=== PATIENT | female | born 1960 | race Hispanic/Latino ===

== ENCOUNTER 2018-01-17 17:27 | Emergency (ER) | payer MEDICARE ==
[2018-01-17 17:30] VITALS: BMI 59.9
--- NOTE | 2018-01-17 18:41 | ED PDOC ---
Arrival/HPI - General Chief Complaint: Back Pain Time Seen by Provider: 01/17/18 17:35 Historian: Patient - History of Present Illness Narrative History of Present Illness (Text): 01/17/18 18:38 57yo female with PMHx of Diabetes, hypertension, GERD, Asthma who present with complaint of left sided mid back pain x 6weeks. Patient states pain became increasingly worse. Notes that pain is constant but worse with movement. She admits to urinary frequency. She states she is not on any medication. States she saw her PMD last week for the pain and urine culture was ordered and pending. She denies fever, chills, abdominal pain, hematuria, nausea, vomiting, any other complaint. Past Medical History - Provider Review Nursing Documentation Reviewed: Yes - Infectious Disease Hx of Infectious Diseases: None - Tetanus Immunization Tetanus Immunization: Unknown - Reproductive Menopause: Yes - Cardiac Hx Hypertension: Yes - Pulmonary Hx Asthma: Yes Hx Chronic Obstructive Pulmonary Disease (COPD): Yes - Neurological Hx Neurological Disorder: No - HEENT Hx HEENT Disorder: No - Renal Hx Renal Disorder: No - Endocrine/Metabolic Hx Diabetes Mellitus Type 2: Yes - Hematological/Oncological Hx Cancer: Yes (uterine) - Integumentary Hx Dermatological Disorder: No - Musculoskeletal/Rheumatological Hx Herniated Disk: Yes - Gastrointestinal Hx Gastroesophageal Reflux: Yes - Genitourinary/Gynecological Hx Genitourinary Disorders: No - Psychiatric Hx Psychophysiologic Disorder: No Hx Depression: No Hx Emotional Abuse: No Hx Physical Abuse: No Hx Substance Use: No - Surgical History Hx Hysterectomy: Yes Hx Tonsillectomy: Yes - Anesthesia Hx Anesthesia: Yes Hx Anesthesia Reactions: No Hx Malignant Hyperthermia: No - Suicidal Assessment Feels Threatened In Home Enviroment: No Family/Social History - Physician Review Nursing Documentation Reviewed: Yes Family/Social History: Unknown Family HX Smoking Status: Never Smoked Hx Alcohol Use: No Hx Substance Use: No Hx Substance Use Treatment: No Allergies/Home Meds Allergies/Adverse Reactions: Allergies enalapril Allergy (Verified 01/17/18 18:05) ANAPHYLAXIS erythromycin lactobionate [From Erythrocin] Allergy (Verified 01/17/18 18:05) ANAPHYLAXIS gluten Allergy (Verified 01/17/18 18:05) VOMITING ibuprofen Allergy (Verified 01/17/18 18:05) ANAPHYLAXIS metoprolol Adverse Reaction (Verified 01/17/18 18:05) RASH Home Medications: Home Meds Medication Instructions Recorded Confirmed Albuterol HFA [Ventolin HFA 90 2 puff IH [id number] 09/05/13 01/17/18 mcg/actuation (8 g)] Dexlansoprazole [Dexilant] 60 mg PO DAILY 09/05/13 01/17/18 Insulin NPH Human Isophane 65 unit SC DAILY 09/05/13 01/17/18 [Humulin N] Ipratropium [Atrovent HFA] 1 puff IH TID 09/05/13 01/17/18 Losartan [Cozaar] 25 mg PO DAILY 09/05/13 01/17/18 Montelukast [Singulair] 10 mg PO DAILY 09/05/13 01/17/18 Beclomethasone Dipropionate [Qvar] 2 puff INH BID 01/29/16 01/17/18 Insulin Regular [HumuLIN R] 30 units SC TID 01/29/16 01/17/18 Levomefolate/B6/B12/Algal Oil 1 cap PO DAILY 01/29/16 01/17/18 [Metanx Capsule] Quinapril HCl 40 mg PO DAILY 01/29/16 01/29/16 metFORMIN [glucOPHAGE] 500 mg PO BID 01/29/16 01/17/18 Review of Systems - Physician Review All systems were reviewed & negative as marked: Yes - Review of Systems Constitutional: Normal Eyes: Normal ENT: Normal Respiratory: Normal Cardiovascular: Normal Gastrointestinal: Normal Genitourinary Female: Normal Musculoskeletal: Back Pain Skin: Normal Neurological: Normal Endocrine: Normal Hemo/Lymphatic: Normal Psychiatric: Normal Physical Exam Vital Signs Reviewed: Yes Vital Signs Temp Pulse Resp BP Pulse Ox 01/17/18 20:19 98.1 F 85 17 130/72 98 01/17/18 19:39 89 17 132/63 100 01/17/18 17:29 98.3 F 90 18 127/82 96 Temperature: Afebrile Blood Pressure: Normal Pulse: Regular Respiratory Rate: Normal Appearance: Positive for: Well-Appearing, Non-Toxic, Comfortable, Other ( Morbidly obese) Pain Distress: None Mental Status: Positive for: Alert and Oriented X 3 - Systems Exam Head: Present: Atraumatic, Normocephalic Pupils: Present: PERRL Extroacular Muscles: Present: EOMI Conjunctiva: Present: Normal Mouth: Present: Moist Mucous Membranes Neck: Present: Normal Range of Motion Respiratory/Chest: Present: Clear to Auscultation, Good Air Exchange. No: Respiratory Distress, Accessory Muscle Use Cardiovascular: Present: Regular Rate and Rhythm, Normal S1, S2. No: Murmurs Abdomen: No: Tenderness, Distention, Peritoneal Signs Back: Present: CVA Tenderness (LEft side), Paraspinal Tenderness (Left parathoracic tenderness). No: Midline Tenderness, Pain with Leg Raise Upper Extremity: Present: Normal Inspection. No: Cyanosis, Edema Lower Extremity: Present: Normal Inspection. No: Edema Neurological: Present: GCS=15, CN II-XII Intact, Speech Normal Skin: Present: Warm, Dry, Normal Color. No: Rashes Psychiatric: Present: Alert, Oriented x 3, Normal Insight, Normal Concentration Medical Decision Making ED Course and Treatment: 01/17/18 20:03 PT in ED for stated history. She declined pain medication in ED. She have UTI and was DC home with Keflex. Abdomen/Pelvic CT IMPRESSION: 1. There is hypodense fatty infiltration of the liver. 2. Diverticulosis. 3. There is a hypodense probable right renal cyst measuring 3.5 x 2.8 cm. 4. There is an enlarged right external iliac chain lymph node measuring 2.4 cm in length. There stranding of adjacent fat, which may be inflammatory. A few enlarged left external iliac chain lymph nodes are also visualized, nonspecific as to etiology. Correlation with prior studies is recommended. 5. Incidental/non-acute findings are described above. Thoracic spine xray DJD. No acute finding Result was DW the pt and she was referred to her PMD. - Lab Interpretations Lab Results: Lab Results 01/17/18 19:34: POC Glucose (mg/dL) 62 L 01/17/18 19:18: Urine Color Yellow, Urine Appearance Clear, Urine pH 6.0, Ur Specific Miller 1.025, Urine Protein Trace H, Urine Glucose (UA) Negative, Urine Ketones Negative, Urine Blood Negative, Urine Nitrate Positive H, Urine Bilirubin Negative, Urine Urobilinogen 0.2, Ur Leukocyte Esterase Small H, Urine RBC 1 - 3, Urine WBC 10 - 15, Ur Epithelial Cells 4 - 5, Amorphous Sediment Few, Urine Bacteria Large, Urine Other Uyeast - RAD Interpretation Radiology Orders: 01/17/18 18:10 ABD & PELVIS W/O PO OR IV CONT [CT] Stat DORSAL (THORACIC) SPINE [RAD] Stat - Medication Orders Current Medication Orders: Discontinued Medications Nitrofurantoin Macrocrystals (Macrobid) 100 mg PO Q12 STA PRN Reason: Protocol Stop: 01/17/18 19:55 Last Admin: 01/17/18 20:15 Dose: 100 mg Disposition/Present on Arrival - Present on Arrival Any Indicators Present on Arrival: No History of DVT/PE: No History of Uncontrolled Diabetes: No Urinary Catheter: No History of Decub. Ulcer: No History Surgical Site Infection Following: None - Disposition Have Diagnosis and Disposition been Completed?: Yes Diagnosis: UTI (urinary tract infection), Thoracic back pain, Obesity Disposition: HOME/ ROUTINE Disposition Time: 20:00 Patient Plan: Discharge Condition: STABLE Discharge Instructions (ExitCare): Urinary Tract Infections in Adults, Upper Back Pain Additional Instructions: Follow up with your doctor Return to ED for any new or worsening symptoms Prescriptions: Cephalexin [Keflex] 500 mg PO QID #28 capsule Referrals: Hollie Reza DO [Staff Provider] - Follow up with primary Forms: [employer] (Albanian)
--- NOTE | 2018-01-17 19:35 | CT ---
EXAM: CT Abdomen and Pelvis Without Intravenous Contrast EXAM DATE/TIME: 01/17/2018 6:10 PM CLINICAL HISTORY: The patient age is 57 years old and is female; Pain; Other: Left mid back pain; Prior surgery; Surgery type: Hysterectomy Facility exam id and description: Ct [id number] abd pelvis w/o po or iv cont TECHNIQUE: Axial computed tomography images of the abdomen and pelvis without intravenous contrast. All CT scans at this facility use one or more dose reduction techniques, viz.: automated exposure control; ma/kV adjustment per patient size (including targeted exams where dose is matched to indication; i.e. head); or iterative reconstruction technique. Coronal and sagittal reformatted images were created and reviewed. COMPARISON: No relevant prior studies available. FINDINGS: Lung bases: Atelectatic changes are visualized within the lingula. ABDOMEN: Liver: There is hypodense fatty infiltration of the liver. Gallbladder and bile ducts: No calcified stones. No ductal dilation. Pancreas: There is mild atrophy of the pancreas. Spleen: No splenomegaly. Adrenals: No mass. Kidneys and ureters: There is a hypodense probable right renal cyst measuring 3.5 x 2.8 cm. No obstructing stones. No hydronephrosis. Stomach and bowel: Colonic diverticula are identified, without acute inflammatory stranding of the adjacent mesentery. Appendix: No findings to suggest acute appendicitis. PELVIS: Bladder: No stones. The bladder is incompletely filled, which limits the evaluation. Reproductive: The uterus is absent. There is a small amount of gas within the vaginal canal. ABDOMEN and PELVIS: Intraperitoneal space: No free air. Bones/joints: Hypertrophic degenerative changes are noted within the spine. Vasculature: There is minimal atherosclerotic calcification of the abdominal aorta. No abdominal aortic aneurysm. Lymph nodes: There is an enlarged right external iliac chain lymph node measuring 2.4 cm in length, with a prominent fatty hilum. There stranding of adjacent fat, which may be inflammatory. A few enlarged left external iliac chain lymph nodes are also visualized, nonspecific as to etiology. There is no significant retroperitoneal lymphadenopathy. Other: This study is limited by body habitus. IMPRESSION: 1. There is hypodense fatty infiltration of the liver. 2. Diverticulosis. 3. There is a hypodense probable right renal cyst measuring 3.5 x 2.8 cm. 4. There is an enlarged right external iliac chain lymph node measuring 2.4 cm in length. There stranding of adjacent fat, which may be inflammatory. A few enlarged left external iliac chain lymph nodes are also visualized, nonspecific as to etiology. Correlation with prior studies is recommended. 5. Incidental/non-acute findings are described above.
[2018-01-17 19:36] LABS: URINE BILIRUBIN NEGATIVE (NEGATIVE); URINE BLOOD NEGATIVE (NEGATIVE); URINE GLUCOSE (UA) NEGATIVE (NEGATIVE); URINE LEUKOCYTE ESTERASE SMALL Leu/uL (NEGATIVE); URINE PROTEIN TRACE mg/dL (<30 mg/dL); URINE UROBILINOGEN 0.2 E.U./dL (<1 E.U./dL)
[2018-01-17 19:40] VITALS: RESP 17
[2018-01-17 19:41] LABS: URINE APPEARANCE CLEAR (CLEAR); URINE COLOR YELLOW (YELLOW)
[2018-01-17 19:46] LABS: URINE AMORPHOUS SEDIMENT FEW; URINE BACTERIA LARGE (NEG)
[2018-01-17 20:22] VITALS: BP 130/72; PULSE 85; TEMP 98.1; O2SAT 98
--- NOTE | 2018-01-18 09:49 | RAD ---
HISTORY: Back pain COMPARISON: No prior. FINDINGS: BONES: There is normal alignment of the thoracic vertebral bodies. There is normal thoracic kyphosis. There is diffuse bone demineralization. There is no acute fracture. DISC SPACES: There are multilevel degenerative changes with anterior osteophytes and reduced disc heights worse in the lower thoracic spine. SOFT TISSUES: Normal. OTHER FINDINGS: None. IMPRESSION: No acute fracture. Multilevel degenerative disc disease.
== END 2018-01-17 20:22 | disposition home or self-care (01) ==
LOC: ED 17:27
DX: N39.0 Urinary tract infection, site not specified (principal); M54.6 Pain in thoracic spine; E66.9 Obesity, unspecified; I10 Essential (primary) hypertension; E11.9 Type 2 diabetes mellitus without complications